=== PATIENT | male | born 1960 | race Caucasian/White ===

== ENCOUNTER 2016-11-18 08:10 | Observation (INO) | payer MEDICARE ==
[~2016-11-18] VITALS: Ht 177.8 cm; Wt 78.6 kg
[2016-11-18 09:19] LABS: HEMATOCRIT 45.1 % (39.2-51.8); HEMOGLOBIN 15.1 g/dL (13.7-18.0); WHITE BLOOD COUNT 13.6 x10^3/uL (3.4-10)
[2016-11-18 09:28] LABS: BLOOD UREA NITROGEN 12 mg/dL (7-18)
[2016-11-18 09:32] LABS: ASPARTATE AMINO TRANSFERASE 38 U/L (15-37)
[2016-11-18 09:37] LABS: ACETAMINOPHEN < 2 mcg/mL (10-30)
[2016-11-18] MEDS ORDERED: PRAZ5CAP2 PO (10:07)
[2016-11-18] MEDS ORDERED: CYCL5TAB PO (10:07)
[2016-11-18] MEDS ORDERED: HYDR50TA13 PO (10:07)
[2016-11-18] MEDS ORDERED: IBUP800T PO (10:07)
[2016-11-18] MEDS ORDERED: TRAZ100T15 PO (10:07)
[2016-11-18] MEDS ORDERED: ALBU0.63 NEB (10:07)
[2016-11-18] MEDS ORDERED: ALPR1TAB6 PO (10:07)
[2016-11-18 10:09] LABS: DAU SCREEN DISCLAIMER
[2016-11-18] MEDS ORDERED: OXYC10TA6 PO (10:10)
[2016-11-18] MEDS ORDERED: QUET25TA5 PO (10:10)
[2016-11-18] MEDS ORDERED: ACETAMINOPHEN 325 MG TABLET PO PRN (12:30)
[2016-11-18] MEDS ORDERED: ALPRazolam 1MG TABLET PO PRN (12:30)
[2016-11-18] MEDS ORDERED: QUETIAPINE 25MG TABLET PO SCH (12:30)
[2016-11-18] MEDS ORDERED: ONDANSETRON ODT 4 MG PO PRN (12:30)
[2016-11-18] MEDS ORDERED: NICOTINE 21 MG/24 HR PATCH.TD24 ONE (13:23)
[2016-11-18] MEDS: NICOTINE 21 MG/24 HR PATCH.TD24 TD SCH (13:27)
[2016-11-18 20:36] VITALS: BP 134/78
[2016-11-18] MEDS ORDERED: PRAZOSIN 5 MG CAPSULE PO SCH (21:00)
[2016-11-18] MEDS ORDERED: TRAZODONE 100MG TABLET PO SCH (21:00)
[2016-11-18] MEDS ORDERED: DIPHTHERIA-TETANUS ADULT 0.5ML IM-VACC ONE (22:00)
[2016-11-19 05:55] LABS: HEMATOCRIT 41.4 % (39.2-51.8); WHITE BLOOD COUNT 11.3 x10^3/uL (3.4-10)
[2016-11-19 07:44] VITALS: BP 131/83
[2016-11-19] MEDS ORDERED: POLYETHYLENE GLYCOL 17 GM PACKET PO SCH (10:00)
[2016-11-19] MEDS: NICOTINE 21 MG/24 HR PATCH.TD24 TD SCH (12:18)
[2016-11-19] MEDS ORDERED: ZIPRASIDONE 20MG CAPSULE PO SCH ×2 (21:00)
== END 2016-11-19 15:44 ==
LOC: ED 08:48 → INTOOBSV 10:44 → EDIP 10:44 → 3E 19:48
PROVIDERS: ADMIT Internal Medicine; ATTEND Internal Medicine
DX: T14.91 Suicide attempt (principal); D72.829 Elevated white blood cell count, unspecified; F10.20 Alcohol dependence, uncomplicated; F14.10 Cocaine abuse, uncomplicated; F25.9 Schizoaffective disorder, unspecified; F31.9 Bipolar disorder, unspecified; F43.10 Post-traumatic stress disorder, unspecified; Z72.0 Tobacco use; Z23 Encounter for immunization
CPT/HCPCS: 36415; 71010; 80053; 80307; 80329; 81001; 84439; 84443; 85025; 86317; 87086; 90471; 90714; 99285; G0378; G0480

== ENCOUNTER 2016-11-29 20:21 | Emergency (ER) | payer MEDICARE, OTHER ==
[~2016-11-29] VITALS: Ht 177.8 cm; Wt 83.2 kg
[~2016-11-29 20:21] MED LIST: ALBU0.63 NEB; ALPR1TAB6 PO; CYCL5TAB PO; HYDR50TA13 PO; IBUP-1223 PO; OXYC10TA6 PO; PRAZ5CAP2 PO; QUET25TA5 PO; TRAZ100T15 PO
[2016-11-29 20:27] VITALS: BP 120/72
== END 2016-11-29 22:17 | disposition home or self-care (01) ==
LOC: ED 22:09
DX: F33.9 Major depressive disorder, recurrent, unspecified (principal); F17.200 Nicotine dependence, unspecified, uncomplicated; F43.10 Post-traumatic stress disorder, unspecified
CPT/HCPCS: 99281

== ENCOUNTER 2016-12-11 18:12 | Emergency (ER) | payer OTHER ==
[~2016-12-11] VITALS: Ht 180.3 cm; Wt 79.5 kg
[2016-12-11] MEDS ORDERED: ZIPR20CA3 PO (18:53)
[2016-12-11 19:00] LABS: HEMATOCRIT 44.1 % (39.2-51.8); HEMOGLOBIN 15.2 g/dL (13.7-18.0); WHITE BLOOD COUNT 10.1 x10^3/uL (3.4-10)
[2016-12-11 19:09] LABS: BLOOD UREA NITROGEN 6 mg/dL (7-18)
[2016-12-11 19:10] LABS: ACETAMINOPHEN < 2 mcg/mL (10-30)
[2016-12-11 19:44] LABS: DAU SCREEN DISCLAIMER
[2016-12-11 23:17] VITALS: BP 103/67
== END 2016-12-12 01:00 | disposition home or self-care (01) ==
LOC: ED 20:21
DX: F33.9 Major depressive disorder, recurrent, unspecified (principal)
CPT/HCPCS: 36415; 80048; 80307; 80329; 82040; 85025; 99284; G0480